=== PATIENT | male | born 1975 | race Caucasian/White ===

== ENCOUNTER 2025-03-03 20:00 | Emergency (ER) | payer BC, SELFPAY ==
[2025-03-03 20:03] VITALS: BP 161/95
[2025-03-03 21:09] VITALS: BMI 22.9
[2025-03-03 21:13] VITALS: BP 135/97
[2025-03-03 22:00] VITALS: BP 112/91
[2025-03-03 23:00] VITALS: BP 141/91
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
[2025-03-04 00:12] VITALS: BP 124/84
== END 2025-03-04 00:19 | disposition home or self-care (01) ==
LOC: EMR 20:00
PROVIDERS: EMERGENCY PHYSICIAN Emergency Medicine; FAMILY PHYSICIAN Family Medicine
DX: S20.211A Contusion of right front wall of thorax, initial encounter (principal); R03.0 Elevated blood-pressure reading, without diagnosis of hypertension; E10.9 Type 1 diabetes mellitus without complications; F41.9 Anxiety disorder, unspecified; F32.A Depression, unspecified; J45.909 Unspecified asthma, uncomplicated; F17.290 Nicotine dependence, other tobacco product, uncomplicated; Z79.4 Long term (current) use of insulin; Z79.84 Long term (current) use of oral hypoglycemic drugs; Z83.3 Family history of diabetes mellitus; V43.52XA Car driver injured in collision with other type car in traffic accident, initial encounter; Y92.410 Unspecified street and highway as the place of occurrence of the external cause
CPT/HCPCS: 99284; 71046; 93005